=== PATIENT | female | born 1990 ===

== ENCOUNTER 2019-09-29 13:08 | Outpatient (CLI) | payer MEDICAID ==
[~2019-09-29] VITALS: Ht 165.1 cm; Wt 72.1 kg
[2019-09-29 14:34] VITALS: BP 116/74
[2019-09-29] MEDS ORDERED: NO MEDICATION (14:34)
--- NOTE | 2019-09-29 22:44 | Consultation ---
DATE OF CONSULTATION: 09/29/2019 CONSULTING PHYSICIAN: Nishant Mas MD. CHIEF COMPLAINT: Rectal bleeding, hemorrhoids. PAST MEDICAL HISTORY: UTI. PAST SURGICAL HISTORY: History of breast augmentation. MEDICATIONS: Please see medication reconciliation list. FAMILY HISTORY: No family history of GI malignancies. SOCIAL HISTORY: The patient denies any tobacco, alcohol, or IV drug abuse. ALLERGIES: To penicillin. REVIEW OF SYSTEMS: Positive for constipation and rectal bleeding. PHYSICAL EXAMINATION: VITAL SIGNS: Temperature 98.8, blood pressure 116/74, pulse 70, respirations 20. HEENT: Normocephalic and atraumatic. Sclerae anicteric. NECK: Supple. No evidence of obvious lymphadenopathy. CARDIOVASCULAR: Regular rhythm. Plus S1, S2. LUNGS: Clear to auscultation bilaterally. ABDOMEN: Positive bowel sounds. Soft and nontender. No rebound. No guarding. No peritoneal sign. EXTREMITIES: No cyanosis. No clubbing. No edema. ASSESSMENT AND PLAN: This is a 28-year-old female with severe large external hemorrhoids. The patient was given Anusol-HC cream to be applied twice a day. The patient also was told to do sitz baths 20 minutes 2-3 times a day. If no improvement, followup by Surgery. The patient also needs to have constipation management. We offered her to take [id number] MiraLAX added to her regimen that she is taking right now, helping her with improving her bowel movement. Nishant Mas M.D. DR: Kitty JOB#: [id number] CC:
== END 2019-09-29 15:57 | disposition home or self-care (01) ==
LOC: PAN 13:08
DX: K62.5 Hemorrhage of anus and rectum (principal); Z88.0 Allergy status to penicillin; K59.00 Constipation, unspecified; K64.4 Residual hemorrhoidal skin tags